=== PATIENT | male | born 1970 | race Caucasian/White ===

== ENCOUNTER 2021-06-10 20:55 | Emergency (ER) | payer SELFPAY ==
--- NOTE | ~2021-06-10 | XR_ITS ---
EXAMINATION: XR chest 1V portable DATE: 06/10/2021 22:46 INDICATION: Cough and shortness of breath TECHNIQUE: frontal view of the chest was obtained. COMPARISON: None FINDINGS: Fine increased interstitial pattern throughout the lungs with suggestion of a few peripheral Ajit B -lines at the lateral lower lung zones consistent with mild pulmonary edema. More coarse reticular op acities at the bilateral lung bases which could represent additional edema, atelectasis, chronic inte rstitial lung disease or less likely pneumonia. Incidental azygos lobe and fissure. The cardiomediast inal silhouette is normal. Mild thoracolumbar levocurvature with mild spondylosis. IMPRESSION: 1. Diffuse increased interstitial pattern with differential including pulmonary edema, atelectasis, p neumonia, more chronic interstitial lung disease or some combination thereof. Reviewed, dictated and finalized at location A. IMPRESSION: 1. Diffuse increased interstitial pattern with differential including pulmonary edema, atelectasis, pneumonia, more chronic interstitial lung disease or some combination thereof.
[2021-06-10 20:59] VITALS: BP 129/77; PULSE 105; RESP 18; TEMP 36.2; O2SAT 97
--- NOTE | 2021-06-10 22:21 | ED.GENADULT ---
HPI - General Adult General Chief complaint: Unspecified Stated complaint: Leg pain, lung issues , stress Time Seen by Provider: 06/10/21 21:55 History of Present Illness HPI narrative: Patient is a 51-year-old male who presents ER with complaints of suicidal ideation. Reports its been ongoing for 2 days. He is feeling stressed and anxious and feels like he wants to end his life. He does not have a plan. He has never been hospitalized for mental illness or for suicidal ideation. Patient reports he just moved here 2 days ago from [place] which is where he is having chronic leg pain treatments. He reports he has had multiple orthopedic surgeries of his left and left nerve issues in that leg. Patient denies fevers or chills or sweats. No productive cough. No exposure to COVID-19. No loss of taste or smell. He reports she is vaccinated against Covid. He does have a chronic cough related to smoking. Related Data Allergies Allergy/AdvReac Type Severity Reaction Status Date / Time No Known Allergies Allergy Verified 06/10/21 22:02 Review of Systems Review of Systems: All systems reviewed & are unremarkable except as noted in HPI and below Constitutional: Constitutional: Denies chills, Denies fatigue and Denies fever(s) ENT: Denies nasal congestion and Denies sore throat Respiratory: Respiratory: Reports cough, Denies dyspnea and Denies wheezing Gastrointestinal: Gastrointestinal: Denies abdominal pain, Denies diarrhea, Denies nausea and Denies vomiting Psychiatric: Psychiatric: Reports anxiety, Denies panic attacks, Denies paranoia, Denies visual hallucinations, Denies hallucinations, Denies homicidal ideation and Reports suicidal ideation PMFSH Past Medical History Medical History (Updated 06/11/21 @ 01:54 by Yan Hudson MD) Hyperlipidemia Pulmonary fibrosis Surgical History Surgical History (Updated 06/10/21 @ 22:30 by Yan Hudson MD) History of orthopedic surgery Left lower extremity pending at the hip. Social History Social History (Updated 06/10/21 @ 22:31 by Yan Hudson MD) Smoking status: Current every day smoker Substance use type: does not use Exam Narrative: GENERAL: Well-appearing, well-nourished, and in no acute distress. HEAD: Normocephalic, atraumatic. EYES: PERRL and EOMI. ENT: Mucous membranes moist. CHEST: Clear to auscultation. No respiratory distress. HEART: Regular rate and rhythm. Normal peripheral pulses. ABDOMEN: Soft, nontender, nondistended. EXTREMITIES: Normal range of motion. No edema. SKIN: Warm, dry, no rash. NEURO: Alert and oriented x3. PSYCH: Normal mood and affect reports anxiousness and suicidal ideation without plan. No auditory visual hallucinations. Course Reevaluation(s) Reevaluation #1: Patient is medically cleared for psychiatric evaluation. Date: 06/11/21 Time: 00:11 Reevaluation #2: Patient has been evaluated by crisis. He has been contracted for safety as he has no real plan and does not feel suicidal at this time. Date: 06/11/21 Time: 01:53 Vital Signs Vital signs: Vital Signs Temperature 97.1 F L 06/10/21 20:59 Pulse Rate 105 H 06/10/21 20:59 Respiratory Rate 18 06/10/21 20:59 Blood Pressure 129/77 06/10/21 20:59 Pulse Oximetry 97 06/10/21 20:59 Temperature 97.1 F L 06/10/21 20:59 Pulse Rate 68 06/10/21 23:47 Respiratory Rate 16 06/10/21 23:47 Blood Pressure 126/71 06/10/21 23:47 Pulse Oximetry 96 06/10/21 23:47 Medical Decision Making Vital Signs Vital Signs: Vital Signs Temperature 97.1 F L 06/10/21 20:59 Pulse Rate 105 H 06/10/21 20:59 Respiratory Rate 18 06/10/21 20:59 Blood Pressure 129/77 06/10/21 20:59 Pulse Oximetry 97 06/10/21 20:59 Temperature 97.1 F L 06/10/21 20:59 Pulse Rate 68 06/10/21 23:47 Respiratory Rate 16 06/10/21 23:47 Blood Pressure 126/71 06/10/21 23:47 Pulse Oximetry 96 06/10/21 23:47 Lab Data Result diagrams:
[2021-06-10 22:23] LABS: Basophils Absolute Auto 0.1 K/mm3 (0.0-0.1); Basophils Percent Auto 0.5 % (0.2-1.2); Eosinophils Absolute Auto 0.1 K/mm3 (0-0.3); Eosinophils Percent Auto 0.8 % (0-4.4); Hematocrit 41.8 % (42.0-52.0); Immature Granulocyte Absolute 0.03 K/mm3 (0.00-0.031); Immature Granulocyte Percent A 0.3 % (0-0.5); Lymphocytes Absolute Auto 2.62 K/mm3 (0.9-3.2); Lymphocytes Percent Auto 22.8 % (18.3-44.2); Mean Corpuscular HGB Conc 33.5 g/dl (32-36); Mean Corpuscular Hemoglobin 29.4 pg (26-34); Mean Corpuscular Volume 87.8 fl (80-100); Mean Platelet Volume 9.1 fl (7.4-10.4); Monocytes Absolute Auto 0.6 K/mm3 (0.1-0.6); Monocytes Percent Auto 5.6 % (2.6-8.5); Platelet Count Result 357 k/mm3 (150-375); Red Blood Count 4.76 M/mm3 (4.6-6.20); Red Cell Distribution Width 13.1 % (11.5-14.5); White Blood Count 11.5 K/mm3 (4.5-10.0)
[2021-06-10 22:38] LABS: Add Urine Microscopic? YES; Appearance Urine Clear (Clear); Bilirubin Urine Negative (Negative); Blood Urine Negative (Negative); Color Urine Yellow (Yellow); Glucose Urine UA Negative (Negative); Ketones Urine Negative (Negative); Leukocyte Esterase Ur Negative LEU/UL (Negative); Mucus Urine Moderate /lpf; Nitrate Urine Negative (Negative); Protein Urine 1+ mg/dL (Negative); WBC Urine 0-3 /hpf
[2021-06-10 22:44] LABS: Alanine Aminotransferase 10 U/L (4-50); Albumin Level 4.2 g/dL (3.5-5.1); Alkaline Phosphatase 76 U/L (38-126); Anion Gap 9 mmol/L (8-16); Aspartate Amino Transferase 17 U/L (17-59); Bilirubin,Total 0.2 mg/dL (0.2-1.3); Blood Urea Nitrogen 11 mg/dL (9-20); Calcium 9.1 mg/dL (8.4-10.2); Carbon Dioxide 23 mmol/L (22-30); Chloride 111 mmol/L (98-107); Estimated CRCL calculation 85 ml/min; Estimated Glomerular Filt Rate > 60; Ethanol < 10 mg/dL (<10); Glucose 98 mg/dL (65-110); Potassium 3.5 mmol/L (3.4-5.0); Sodium 143 mmol/L (137-145)
[2021-06-10 22:48] LABS: Specific Grav Ur 1.031 (1.001-1.035)
[2021-06-10 23:47] VITALS: BP 126/71; PULSE 68; RESP 16; O2SAT 96
[2021-06-10 23:47] LABS: Barbiturate Screen Urine Negative (Negative); Benzodiazepines Screen Urine Negative (Negative)
[2021-06-10 23:52] LABS: Amphetamine Screen Urine Negative (Negative); Cannabinoid Screen Urine Negative (Negative); Cocaine Screen Urine Negative (Negative); Methadone Screen Urine Negative (Negative); Opiate Screen Urine Negative (Negative); Phencyclidine Screen Urine Negative (Negative)
--- NOTE | 2021-06-11 00:45 | PC.NURSE ---
Called Crisis per silk screen frame assembler for evaluation. chute worker states a staff member for crisis will be out for evaluation within 2 hours. Updated PREETI Harmon on her pt.
--- NOTE | 2021-06-11 02:15 | PC.NURSE ---
Crisis here to evaluate pt.
[2021-06-11 03:42] VITALS: BP 117/68; PULSE 69; RESP 16; O2SAT 95
== END 2021-06-11 03:45 | disposition home or self-care (01) ==
PROVIDERS: Emergency Provider Emergency Medicine
DX: F32.9 Major depressive disorder, single episode, unspecified (principal); E78.5 Hyperlipidemia, unspecified; J84.10 Pulmonary fibrosis, unspecified; F17.210 Nicotine dependence, cigarettes, uncomplicated
CPT/HCPCS: 36415; 71045; 80053; 80307; 81001; 84443; 85025; 99284